=== PATIENT | female | born 1940 | race Caucasian/White ===

== ENCOUNTER 2018-12-28 15:19 | Inpatient (IN) | payer OTHER ==
[2018-12-28] VITALS (9 sets, daily range): BP systolic 110–159
[~2018-12-28] VITALS: Ht 157.5 cm; Wt 56.7 kg
[~2018-12-28 15:19] MED LIST: ASCO500T20 PO; ASPI-858 PO; CARV12.548 PO; CEFAZOLIN 1 GM IVPB PREMIX 50 ML IV ONE; CINN1CAP2 PO; ERGO400T7 PO; GARL200T PO; GING550C5 PO; GLIP10TA11 PO; LORA1TAB PO; MIDAZOLAM HCL 5 MG/5 ML VIAL IVP ONE; NITSL SL; NS 50 ML BAG IV ONE; NS 500 ML IV.SOLN IV ONE; NS IRRIG SOLN 1000 ML IR ONE; OMEG300C3 PO; PHEL5 PO; PROM5SYR PO; PROPOFOL 200MG/ 20ML VIAL (DIPRIVAN) IV ONE; SIMV5TAB59 PO
--- NOTE | 2018-12-28 15:26 | NUR ---
Placed in room 7. Placed on vehicle monitor technician, blood pressure machine and pulse oximeter. To gown for exam. Side rails up. Report given to Nikhil MARTIN.
--- NOTE | 2018-12-28 15:30 | NUR ---
ER at bedside examining patient.
--- NOTE | 2018-12-28 15:35 | NUR ---
Patient to ER via triage for evaluation of SOB with exertion x 2 days prior to arrival. Patient is awake, alert and oriented in no acute distress, vital signs stable, respiratioins even and unlabored, skin warm and dry to touch. Patient placed on quality assurance monitor body and shows bradycardia with rate in the 30's, patient denies CP/pressure at this time. Dr Velazquez at bedside to evaluate patient. IV placed to left forearm, bloods drawn and sent to lab. Family remains at bedside.
[2018-12-28] MEDS ORDERED: EPINEPHrine JECT 1 MG/10 ML SYR IVP ONE (15:45)
--- NOTE | 2018-12-28 15:45 | NUR ---
Per Dr Velaqzuez, only give Epinephrine 0.1 mg, Epinephrine given slow IVP. HR increased to 70's
[2018-12-28 16:05] LABS: BASOPHILS % (AUTO) 0.4 % (0.0-2.0); EOSINOPHILS # (AUTO) 0.2 K/uL (0.0-0.4); EOSINOPHILS % (AUTO) 1.8 % (0.0-4.0); HEMATOCRIT 36.3 % (36-48); HEMOGLOBIN 12.2 g/dL (12.0-16.0); LYMPHOCYTES # (AUTO) 3.2 K/uL (1.0-5.5); LYMPHOCYTES % (AUTO) 29.4 % (20.5-51.5); MEAN CORPUSCULAR HEMOGLOBIN 30 pg (27-31); MEAN CORPUSCULAR HGB CONC 34 % (32-36); MEAN CORPUSCULAR VOLUME 88 fL (79.0-98.0); MONOCYTES # (AUTO) 0.8 K/uL (0.0-1.0); MONOCYTES % (AUTO) 6.9 % (1.7-9.3); NEUTROPHILS # (AUTO) 6.7 K/uL (1.8-7.7); NEUTROPHILS % (AUTO) 61.5 % (40.0-70.0); PLATELET COUNT (AUTO) 227 K/uL (130-430); RED BLOOD CELL COUNT(AUTO) 4.12 MIL/uL (4.2-6.2); RED CELL DISTRIBUTION WIDTH 14.7 % (9.0-15.0); WHITE BLOOD COUNT (AUTO) 10.9 K/uL (4.8-10.8)
[2018-12-28 16:07] LABS: ANION GAP 11 (5-15); CALCIUM 9.3 mg/dL (8.4-11.0); CHLORIDE 100 mmol/L (98-107); CREATININE 1.13 mg/dL (0.55-1.30); GLUCOSE 256 mg/dL (70-99); POTASSIUM 4.1 mmol/L (3.5-5.1); SODIUM SERUM 135 mmol/L (136-145); UREA NITROGEN, BLOOD 26 mg/dL (8-21)
[2018-12-28 16:12] LABS: PROTHROMBIN TIME 10.3 SECS (9.5-12.5)
[2018-12-28] MEDS ORDERED: NOREPINEPHRINE 4 MG/4 ML VIAL IV ONE (16:12)
[2018-12-28] MEDS ORDERED: GLU500 PO (16:15)
[2018-12-28] MEDS ORDERED: GLIP10TA11 PO (16:15)
[2018-12-28] MEDS ORDERED: ASPI-1155 PO (16:15)
[2018-12-28] MEDS ORDERED: SIMV10TA2 PO (16:15)
[2018-12-28] MEDS ORDERED: CARV12.548 PO (16:15)
[2018-12-28] MEDS ORDERED: NITSL SL (16:15)
--- NOTE | 2018-12-28 16:15 | NUR ---
Patient resting quietly in no acute distress, vital signs stable, awaiting lab results and dispo. Medication reconciliation completed with information provided by patient. Any prior medication reconciliation on file was reviewed and corrected.
[2018-12-28 16:16] LABS: ALANINE AMINOTRANSFERASE 25 U/L (12-78); ALBUMIN 3.6 g/dL (3.4-4.8); ASPARTATE AMINOTRANSFERASE 21 U/L (10-37); TOTAL BILIRUBIN 0.3 mg/dL (0.0-1.0)
--- NOTE | 2018-12-28 16:40 | NUR ---
Patient resting quietly in no acute distress, awaiting dispo.
[2018-12-28] MEDS ORDERED: CALCIUM CHLORIDE 1 GM/10 ML DISP.SYRIN (14 mEq Ca++/SYR) IVP ONE (17:30)
[2018-12-28] MEDS ORDERED: GLUCAGON,HUMAN RECOMBINANT 1 MG VIAL IVP ONE (17:30)
[2018-12-28] MEDS ORDERED: NACL 0.9% 1,000 ML IV ONE (17:30)
[2018-12-28] MEDS ORDERED: ONDANSETRON HCL 4 MG/2 ML VIAL IVP ONE (17:30)
--- NOTE | 2018-12-28 17:35 | NUR ---
Pharmacy called for Glucagon, will have to locate and then bring to ER.
[2018-12-28] MEDS ORDERED: GLUCAGON,HUMAN RECOMBINANT 1 MG VIAL ONE ×2 (17:41→17:58)
--- NOTE | 2018-12-28 17:45 | NUR ---
Dr Carolina at bedside to evaluate patient, patient resting quietly in no acute distress.
--- NOTE | 2018-12-28 18:15 | NUR ---
Patient resting quietly in no acute distress, family remains at bedside.
--- NOTE | 2018-12-28 18:30 | NUR ---
Patient will be admitted to care of Dr Jang. Admitted to ICU unit. Will go to room 5. Belongings list completed. Summary report printed. Report will be given at bedside.
--- NOTE | 2018-12-28 18:32 | NUR ---
Transfer to ICU-5 via ACLS protocol. Licensed nurse present. IV present no signs or symptoms of infiltration.
--- NOTE | 2018-12-28 18:45 | NUR ---
RN OPENING NOTE RECEIVED PT VIA DAVID FROM ENDORSING ER NURSE. PT AAO, SPEAKS GEORGIAN AND IS COOPERATIVE WITH NO COMPLAINT OF DISCOMFORT, ASYMPTOMATIC BRADYCARDIA.
[2018-12-28] MEDS ORDERED: ALBUTEROL SULFATE 0.083% 2.5 MG/3 ML VIAL.NEB INH PRN (19:00)
--- NOTE | 2018-12-28 19:10 | NUR ---
ENDORSEMENT SBAR REPORT ENDORSED TO RECEIVING RN JET AT BEDSIDE SEE VS FLOW SHEET
[2018-12-28] MEDS ORDERED: DEXTROSE 50% JECT 50 ML DISP.SYRIN IVP PRN (19:15)
--- NOTE | 2018-12-28 19:15 | NUR ---
PM ASSESSMENT Pt in bed w/ eyes open, resting comfortably. Pt A&O x4 and able to verbalize needs. No signs of acute distress or discomfort noted. Pt on RA tolerating well w/ O2 sats @ 94% and even and unlabored breathing. Asymptomatic bradycardia w/ a heartblock seen on the monitor. Pt has a L hand 18g saline locked at this time. Pt doesn't verbalize any other needs at this time. Bed is locked and in lowest position, call light w/in reach, will continue to monitor.
--- NOTE | 2018-12-28 23:15 | NUR ---
Pt in bed w/ eyes closed resting comfortably. No signs of acute distress or discomfort noted. Complete heart block seen on the monitor. Pt is asymptomatic and doesn't verbalize any needs at this time. Will continue to monitor pt.
[2018-12-28] MEDS: INSULIN REGULAR, HUMAN 100 UNITS/ML, 10 ML VIAL (novoLIN R) SUBCUT PRN (23:58)
[2018-12-29] VITALS (24 sets, daily range): BP systolic 94–163
--- NOTE | 2018-12-29 02:00 | NUR ---
Pt in bed w/ eyes closed resting comfortably. No signs of acute distress or discomfort noted. Pt doesn't verbalize any other needs at this time. Bed is locked and in lowest position, call light w/in reach, will continue to monitor.
--- NOTE | 2018-12-29 05:15 | NUR ---
Pt in bed w/ eyes closed resting comfortably. No signs of acute distress or discomfort noted. Pt on RA tolerating well w/ O2 sats @ 96% and even and unlabored breathing. Pt doesn't verbalize any needs at this time. Bed is locked and in lowest position, call light w/in reach, will continue to monitor.
[2018-12-29 06:17] LABS: BASOPHILS % (AUTO) 0.4 % (0.0-2.0); EOSINOPHILS # (AUTO) 0.2 K/uL (0.0-0.4); EOSINOPHILS % (AUTO) 2.1 % (0.0-4.0); HEMATOCRIT 33.1 % (36-48); HEMOGLOBIN 11.1 g/dL (12.0-16.0); LYMPHOCYTES # (AUTO) 3.1 K/uL (1.0-5.5); LYMPHOCYTES % (AUTO) 29.6 % (20.5-51.5); MEAN CORPUSCULAR HEMOGLOBIN 29 pg (27-31); MEAN CORPUSCULAR HGB CONC 34 % (32-36); MEAN CORPUSCULAR VOLUME 88 fL (79.0-98.0); MONOCYTES # (AUTO) 0.8 K/uL (0.0-1.0); MONOCYTES % (AUTO) 7.8 % (1.7-9.3); NEUTROPHILS # (AUTO) 6.3 K/uL (1.8-7.7); NEUTROPHILS % (AUTO) 60.1 % (40.0-70.0); PLATELET COUNT (AUTO) 197 K/uL (130-430); RED BLOOD CELL COUNT(AUTO) 3.79 MIL/uL (4.2-6.2); RED CELL DISTRIBUTION WIDTH 14.4 % (9.0-15.0); WHITE BLOOD COUNT (AUTO) 10.4 K/uL (4.8-10.8)
[2018-12-29 06:50] LABS: ANION GAP 11 (5-15); CALCIUM 9.1 mg/dL (8.4-11.0); CHLORIDE 108 mmol/L (98-107); CREATININE 0.89 mg/dL (0.55-1.30); GLUCOSE 115 mg/dL (70-99); POTASSIUM 3.8 mmol/L (3.5-5.1); SODIUM SERUM 141 mmol/L (136-145); UREA NITROGEN, BLOOD 21 mg/dL (8-21)
[2018-12-29 06:59] LABS: ALANINE AMINOTRANSFERASE 29 U/L (12-78); ALBUMIN 3.1 g/dL (3.4-4.8); ASPARTATE AMINOTRANSFERASE 21 U/L (10-37); TOTAL BILIRUBIN 0.3 mg/dL (0.0-1.0)
[2018-12-29] MEDS ORDERED: NITROGLYCERIN 0.4 MG TAB.SUBL SL PRN (07:15)
--- NOTE | 2018-12-29 07:15 | NUR ---
Opening Note Received plan of care via sbar from endorsing nurse MRAIO Metz. Completed pt round. PT is presenting no signs of distress or communicating any discomforts.
--- NOTE | 2018-12-29 07:20 | NUR ---
ENDORSEMENT Report given to Dani MARTIN using SBAR format and pt care was endorsed. No signs of acute distress or discomfort noted. Pt doesn't verbalize any needs at this time.
--- NOTE | 2018-12-29 07:45 | NUR ---
Critical Value Troponin 0.[address] Rose. No new orders.
[2018-12-29] MEDS ORDERED: ASPIRIN 81 MG TAB.CHEW PO SCH (09:00)
[2018-12-29] MEDS: ASPIRIN 81 MG TAB.CHEW PO SCH (09:23)
[2018-12-29] MEDS: SIMVASTATIN 10 MG TABLET PO SCH (09:23)
--- NOTE | 2018-12-29 10:26 | NUR ---
Nutrition Update Av Scale 17 noted. Pt admitted for heart block. Diet: [facility] BMI: 22.9 kg/m2 RD to follow per nutrition care standards.
[2018-12-29] MEDS: INSULIN REGULAR, HUMAN 100 UNITS/ML, 10 ML VIAL (novoLIN R) SUBCUT PRN ×2 (12:09→19:00)
--- NOTE | 2018-12-29 13:44 | NUR ---
Received list of "do not eat" from pt's daughter. List includes: No yeast Gluten Dairy Coconut Eggs Tortillas
--- NOTE | 2018-12-29 13:52 | NUR ---
Called dietary spoke to Puja to provide list of food preferences per pt and pt's daughter.
--- NOTE | 2018-12-29 14:04 | NUR ---
Nutrition Note RD implemented dietary restrictions to [employer] under dislikes tab. Per RN, pt's daughter stated that pt sees a land acquisition specialist and has recommended pt to avoid these food products: yeast, gluten, dairy, coconut, eggs, and tortillas. RD to continue to follow as per nutrition care standards.
--- NOTE | 2018-12-29 20:00 | NUR ---
Closing Note Gave plan of care to endorsing nurse via Berny orozco RN. Completed PT round.
--- NOTE | 2018-12-29 20:01 | NUR ---
AAO X4. IN NO APPARENT DISTRESS. DENIES PAIN. RHYTHM 3RD DEGREE HB. ON ROOM AIR. HOB UP TO COMFORT. SIDE RAILS UP X3. CALL LIGHTS WITHIN REACH. VISITORS AT BEDSIDE.
--- NOTE | 2018-12-29 22:00 | NUR ---
VISITORS LEFT EARLIER. VOIDED CLOUDY STRAW YELLOW URINE VIA BEDPAN EARLIER. MODEST. SELF HUSAM-CARE.
[2018-12-30] VITALS (21 sets, daily range): BP systolic 129–184
--- NOTE | 2018-12-30 | NUR ---
DOZES ON AND OFF. HR HIGH 30'S WHEN ASLEEP. O DISTRESS. ACCU-CHEK 123, NO INSULIN COV. HR GOES UP TO 70'S WHEN AWAKE.
--- NOTE | 2018-12-30 02:00 | NUR ---
VOIDED 250CC CLOUDY YELLOW URINE VIA BEDPAN.
--- NOTE | 2018-12-30 04:00 | NUR ---
SLEPT INTERMITTENTLY. VOIDED 110 CC CLOUDY YELLOW URINE VIA BEDPAN.
--- NOTE | 2018-12-30 06:00 | NUR ---
SLEPT FOR LONG PERIODS OF TIME. DENIES PAIN, SOB, DISTRESS. ACCU-CHEK 171, 2 UNITS REGULAR INSULIN SQ GIVEN. REMAINS IN GUAREDED CONDITION.
[2018-12-30 06:08] LABS: BASOPHILS % (AUTO) 0.4 % (0.0-2.0); EOSINOPHILS # (AUTO) 0.3 K/uL (0.0-0.4); EOSINOPHILS % (AUTO) 3.1 % (0.0-4.0); HEMATOCRIT 33.5 % (36-48); HEMOGLOBIN 11.2 g/dL (12.0-16.0); LYMPHOCYTES # (AUTO) 2.9 K/uL (1.0-5.5); LYMPHOCYTES % (AUTO) 35.1 % (20.5-51.5); MEAN CORPUSCULAR HEMOGLOBIN 30 pg (27-31); MEAN CORPUSCULAR HGB CONC 34 % (32-36); MEAN CORPUSCULAR VOLUME 88 fL (79.0-98.0); MONOCYTES # (AUTO) 0.7 K/uL (0.0-1.0); MONOCYTES % (AUTO) 7.8 % (1.7-9.3); NEUTROPHILS # (AUTO) 4.5 K/uL (1.8-7.7); NEUTROPHILS % (AUTO) 53.6 % (40.0-70.0); PLATELET COUNT (AUTO) 190 K/uL (130-430); RED BLOOD CELL COUNT(AUTO) 3.81 MIL/uL (4.2-6.2); RED CELL DISTRIBUTION WIDTH 14.7 % (9.0-15.0); WHITE BLOOD COUNT (AUTO) 8.4 K/uL (4.8-10.8)
[2018-12-30 06:25] LABS: ANION GAP 10 (5-15); CALCIUM 8.9 mg/dL (8.4-11.0); CHLORIDE 107 mmol/L (98-107); CREATININE 1.02 mg/dL (0.55-1.30); GLUCOSE 155 mg/dL (70-99); POTASSIUM 3.9 mmol/L (3.5-5.1); SODIUM SERUM 140 mmol/L (136-145); UREA NITROGEN, BLOOD 18 mg/dL (8-21)
[2018-12-30 06:39] LABS: ALANINE AMINOTRANSFERASE 23 U/L (12-78); ASPARTATE AMINOTRANSFERASE 17 U/L (10-37); TOTAL BILIRUBIN 0.3 mg/dL (0.0-1.0)
--- NOTE | 2018-12-30 07:20 | NUR ---
TROPONIN 0.154 REPORTED BY LAB, RELAYED TO MERT MARTIN AM NURSE.
--- NOTE | 2018-12-30 07:25 | NUR ---
Opening Note Patient received awake and with family @ bedside. Patient on registered nurse cardiac telemetry with 3rd degree heart block with HR between the 30s and 40s. Patient breathing evenly and unlabored on room air. No signs of acute distress noted. Patient has a left hand IV 18 gauge infusing NS @ 100 ml/hr. Patient voids freely using bedpan. Skin intact. Safety precautions enforced. Use of call light reinforced.
[2018-12-30] MEDS ORDERED: DOPamine PREMIX 250 ML IV PRN (08:30)
--- NOTE | 2018-12-30 08:30 | NUR ---
CHG CHG bath given and linens changed. Patient tolerated procedure well.
--- NOTE | 2018-12-30 08:40 | NUR ---
MD Rounds Dr. Thacker @ bedside. New orders received and will be carried out.
--- NOTE | 2018-12-30 08:50 | NUR ---
Rounds Dr. Garcia @ bedside.
--- NOTE | 2018-12-30 09:00 | NUR ---
RN Update Dr. Will and CARPET YARN WINDER OPERATOR @ bedside.
--- NOTE | 2018-12-30 09:36 | NUR ---
Transport to OR Patient brought to OR for pacemaker insertion @ this time. Patient connected to portable monitor with stable VS. No acute distress noted. Patient transported via gurney. Report given to OR nurse using SBAR format.
[2018-12-30] MEDS ORDERED: POLYMYXIN 500,000/BACIT.10,000 UNITS in NS IRR 1 L IR ONE (09:41)
[2018-12-30] MEDS ORDERED: ONDANSETRON HCL 4 MG/2 ML VIAL IVP PRN (10:45)
[2018-12-30] MEDS ORDERED: fentaNYL CITRATE/PF 100 MCG/2 ML AMP IVP PRN ×2 (10:45)
[2018-12-30] MEDS: SIMVASTATIN 10 MG TABLET PO SCH (14:01)
[2018-12-30] MEDS: ASPIRIN 81 MG TAB.CHEW PO SCH (14:01)
[2018-12-30] MEDS: INSULIN REGULAR, HUMAN 100 UNITS/ML, 10 ML VIAL (novoLIN R) SUBCUT PRN (14:01)
[2018-12-30] MEDS: CEPHALEXIN 250 MG/5 ML, 100 ML BTL PO SCH ×2 (14:03→18:03)
--- NOTE | 2018-12-30 15:20 | NUR ---
Back from OR Patient back to ICU-5 and connected to clinical research monitor. Patient on 2L oxygen via NC breathing even and unlabored. No signs of acute distress @ this time. Patient did not complain of pain upon assessment.
[2018-12-30] MEDS: ACETAMINOPHEN 325 MG TABLET PO PRN ×2 (17:16→21:34)
--- NOTE | 2018-12-30 19:00 | NUR ---
Closing Note Patient endorsed to spare parts clerk RN using SBAR format. No signs of acute distress @ this time. Safety precautions enforced.
--- NOTE | 2018-12-30 20:00 | NUR ---
AWAKE, ALERT, ORIENTED X4. IN NO APPARENT DISTRESS. RHYTHM PACED BEATS. ATE LATE DINNER EARLIER. VOIDED 250 CC CLEAR VIRY URINE WITH SEDIMENTS VIA BEDPAN EARLIER. USED INCENTIVE SPIROMETER SUPERVISED BY RT. FAMILY CAME IN TO VISIT.
--- NOTE | 2018-12-30 21:00 | NUR ---
VOIDED AGAIN 200CC CLEAR VIRY URINE VIA BEDPAN. MODEST. SELF HUSAM-CARE. RIGO WELL. LEFT ARM IN SLING.
--- NOTE | 2018-12-30 21:30 | NUR ---
C/O LEFT CHEST INCISIONAL PAIN, 7/10 IN PAIN SCALE, TYLENOL GR 10 PO GIVEN WITH SOME RELIEF.
--- NOTE | 2018-12-30 22:00 | NUR ---
DAUGHTERS LEFT FOR HOME. VOIDED AGAIN 250CC CLEAR VIRY URINE VIA BEDPAN.
[2018-12-31] VITALS (15 sets, daily range): BP systolic 131–155
--- NOTE | 2018-12-31 | NUR ---
DOZES ON AND OFF. PLEASANT. ACCU-CHEK 207, 4 UNITS REGULAR INSULIN SQ GIVEN PER SLIDING SCALE COV. VOIDED 150CC CLEAR VIRY URINE VIA BEDPAN. SELF HUSAM-CARE.
[2018-12-31] MEDS: CEPHALEXIN 250 MG/5 ML, 100 ML BTL PO SCH ×3 (00:29→12:25)
[2018-12-31] MEDS: INSULIN REGULAR, HUMAN 100 UNITS/ML, 10 ML VIAL (novoLIN R) SUBCUT PRN ×3 (00:37→12:31)
--- NOTE | 2018-12-31 02:00 | NUR ---
VOIDED 250CC CLEAR VIRY URINE VIA BEDPAN. SLEPT INTERMITTENTLY. TURNS SELF WELL.
[2018-12-31] MEDS: ACETAMINOPHEN 325 MG TABLET PO PRN ×2 (02:53→07:46)
--- NOTE | 2018-12-31 03:00 | NUR ---
TYLENOL GR 10 PO GIVEN FOR COMPLAIN OF LEFT CHEST INCISIONAL PAIN.VOIDED AGAIN 175 CC CLEAR VIRY URINE VIA BEDPAN. SELF HUSAM-CARE.
--- NOTE | 2018-12-31 05:00 | NUR ---
VOIDED 260CC CLEAR VIRY URINE VIA BEDPAN.
--- NOTE | 2018-12-31 06:00 | NUR ---
TAKES CAT NAPS. DENIES PAIN, DISTRESS, SOB. ACCU-CHEK 234, 4 UNITS REGULAR INSULIN SQ GIVEN. VOIDED 250CC CLEAR VIRY URINE VIA BEDPAN. SELF HUSAM-CARE. NO COMPLAINS OFFERED AT THIS TIME. REMAINS IN GUARDED CONDITION.
[2018-12-31 06:53] LABS: BASOPHILS % (AUTO) 0.5 % (0.0-2.0); EOSINOPHILS # (AUTO) 0.3 K/uL (0.0-0.4); EOSINOPHILS % (AUTO) 3.7 % (0.0-4.0); HEMATOCRIT 33.7 % (36-48); HEMOGLOBIN 11.4 g/dL (12.0-16.0); LYMPHOCYTES # (AUTO) 1.8 K/uL (1.0-5.5); LYMPHOCYTES % (AUTO) 22.2 % (20.5-51.5); MEAN CORPUSCULAR HEMOGLOBIN 29 pg (27-31); MEAN CORPUSCULAR HGB CONC 34 % (32-36); MEAN CORPUSCULAR VOLUME 87 fL (79.0-98.0); MONOCYTES # (AUTO) 0.7 K/uL (0.0-1.0); MONOCYTES % (AUTO) 8.3 % (1.7-9.3); NEUTROPHILS # (AUTO) 5.2 K/uL (1.8-7.7); NEUTROPHILS % (AUTO) 65.3 % (40.0-70.0); PLATELET COUNT (AUTO) 199 K/uL (130-430); RED BLOOD CELL COUNT(AUTO) 3.88 MIL/uL (4.2-6.2); RED CELL DISTRIBUTION WIDTH 14.6 % (9.0-15.0)
--- NOTE | 2018-12-31 07:15 | NUR ---
Received pt alert and oriented and c/o pain to surgical site left chest. Left chest with swelling and dry dressing in place. Lungs clear. Sats 97% without 02. VSS. 100% paced. 18g IV to left wrist in place with NS at 50 cc/ hr infusing. Leg squeezers in place. Assisted to sit up in bed for breakfast. Will continue to monitor.
[2018-12-31 07:39] LABS: ALANINE AMINOTRANSFERASE 22 U/L (12-78); ALBUMIN 2.7 g/dL (3.4-4.8); ANION GAP 11 (5-15); ASPARTATE AMINOTRANSFERASE 14 U/L (10-37); CALCIUM 8.1 mg/dL (8.4-11.0); CHLORIDE 104 mmol/L (98-107); CREATININE 0.86 mg/dL (0.55-1.30); GLUCOSE 203 mg/dL (70-99); PHOSPHORUS 2.8 mg/dL (2.7-4.5); SODIUM SERUM 135 mmol/L (136-145); TOTAL BILIRUBIN 0.4 mg/dL (0.0-1.0); UREA NITROGEN, BLOOD 16 mg/dL (8-21)
[2018-12-31 07:50] LABS: POTASSIUM 2.9 mmol/L (3.5-5.1)
[2018-12-31] MEDS ORDERED: POTASSIUM CHLORIDE 20 MEQ TAB.PRT.SR PO ONE ×2 (08:30→13:00)
[2018-12-31] MEDS ORDERED: MAGNESIUM SULFATE 1 GM/2 ML VIAL IVP ONE (08:30)
[2018-12-31] MEDS ORDERED: MAGNESIUM SULFATE 50 ML IV ONE (09:00)
[2018-12-31] MEDS: ASPIRIN 81 MG TAB.CHEW PO SCH (09:20)
--- NOTE | 2018-12-31 09:20 | NUR ---
Pt ate most of breakfast without problems. Medicated earlier with tylenol at patients request. Declines anything stronger.
[2018-12-31] MEDS: SIMVASTATIN 10 MG TABLET PO SCH (09:21)
--- NOTE | 2018-12-31 09:38 | NUR ---
Dr. Garcia in to see pt. I made him aware of Dr. Mishra potassium coverage earlier this morning. He said to hold his coverage that he just left. Orders left. Dr. Thacker also at bedside and both doctors spoke about discharge plans. Pt remains 100% paced.
[2018-12-31] MEDS ORDERED: POTASSIUM CHLORIDE 20 MEQ/PKT PACKET PO ONE (09:45)
[2018-12-31] MEDS ORDERED: CARVEDILOL 6.25 MG TABLET (COREG) PO ONE (10:00)
[2018-12-31] MEDS ORDERED: CEPH-568 PO ×3 (10:17→10:44)
--- NOTE | 2018-12-31 10:30 | NUR ---
Assisted to BSC to void. No dizzyness. "I felt ok". Assisted back to bed. Will continue to monitor.
[2018-12-31] MEDS ORDERED: CARV6.2554 PO (10:47)
[2018-12-31] MEDS ORDERED: ACET325T53 PO (10:48)
--- NOTE | 2018-12-31 12:30 | NUR ---
Assisted OOB to use BSC to void. No dizzyness. 100% paced. Will continue to monitor.
--- NOTE | 2018-12-31 14:58 | NUR ---
Saline lock removed. Pt discharged home via private car with daughter. Discharge instrcutions reviewed with her and her daughter. Reviewed medicatonion to be taken at home with verbal read back from both pt and her daughter. All questions answered. Pt is aware to F>U with Dr. Thacker in 10 days and to finish her antibiotc. Wrist band removed and pt wheeled to car with all belongings including $50, wallet and purse and clothes.
[2018-12-31] MEDS ORDERED: CARVEDILOL 6.25 MG TABLET (COREG) PO SCH (21:00)
--- NOTE | 2019-01-05 11:29 | NUR ---
Discharge Follow Up Phone Call: [employer] left message for pt on 01/04/19; pt returned call on 01/05/19. UNDERTAKER HELPER spoke with pt, pt states that she is doing well. Pt reports that she has filled her prescriptions. Pt states that she has an appointment with Dr. Thacker on 01/15/19 at 2:45pm and an appointment with her regular chronic disease manager, Dr. Olivia on 01/26/19. Pt has no concerns/needs related to her discharge instructions or hospitalization. No need for further follow up calls at this time.
[2019-01-30] MEDS ORDERED: NACL 0.9% 1,000 ML IV SCH (07:00)
== END 2018-12-31 14:58 | disposition home or self-care (01) | DRG 242 ==
LOC: SED 15:19 → SIC 18:17
PROVIDERS: ADMIT Internal Medicine; ATTEND Internal Medicine
PROC: 02HK3JZ Insertion of Pacemaker Lead into Right Ventricle, Percutaneous Approach (ICD-10-PCS; 2018-12-30)
PROC: 02H63JZ Insertion of Pacemaker Lead into Right Atrium, Percutaneous Approach (ICD-10-PCS; 2018-12-30)
PROC: 5A1223Z Performance of Cardiac Pacing, Continuous (ICD-10-PCS; 2018-12-30)
PROC: 0JH606Z Insertion of Pacemaker, Dual Chamber into Chest Subcutaneous Tissue and Fascia, Open Approach (ICD-10-PCS; principal; 2018-12-30 09:30)
DX: I44.2 Atrioventricular block, complete (principal); I21.A1 Myocardial infarction type 2; I50.31 Acute diastolic (congestive) heart failure; E11.22 Type 2 diabetes mellitus with diabetic chronic kidney disease; I12.9 Hypertensive chronic kidney disease with stage 1 through stage 4 chronic kidney disease, or unspecified chronic kidney disease; N18.9 Chronic kidney disease, unspecified; I25.10 Atherosclerotic heart disease of native coronary artery without angina pectoris; E78.5 Hyperlipidemia, unspecified; Z79.82 Long term (current) use of aspirin; Z79.84 Long term (current) use of oral hypoglycemic drugs; Z79.899 Other long term (current) drug therapy; Z83.3 Family history of diabetes mellitus; Z85.3 Personal history of malignant neoplasm of breast; Z86.19 Personal history of other infectious and parasitic diseases; Z90.11 Acquired absence of right breast and nipple; Z90.710 Acquired absence of both cervix and uterus; Z95.0 Presence of cardiac pacemaker; Z98.61 Coronary angioplasty status; Z88.2 Allergy status to sulfonamides
CPT/HCPCS: 36415; 71045; 76001; 80053; 82962; 83036; 83735-TC; 83880; 84100-TC; 84443-TC; 84484; 85025; 85610-TC; 85730-TC; 87081; 93005; 93306; 94010; 96361; 96374; 96375; 99291; A4565; C1785; C1898; J0171; J0690; J1265; J1610; J1815; J2250; J2405; J2704; J3475; J7030; J7040

== ENCOUNTER 2019-01-26 17:44 | Emergency (ER) | payer OTHER ==
[~2019-01-26] VITALS: Ht 162.6 cm; Wt 56.2 kg
[~2019-01-26 17:44] MED LIST changes: +ACET325T53 PO; -ASCO500T20 PO; +ASPI-1155 PO; -ASPI-858 PO; -CARV12.548 PO; +CARV6.2554 PO; -CEFAZOLIN 1 GM IVPB PREMIX 50 ML IV ONE; +CEPH-568 PO; -CINN1CAP2 PO; -ERGO400T7 PO; -GARL200T PO; -GING550C5 PO; +GLU500 PO; -LORA1TAB PO; -MIDAZOLAM HCL 5 MG/5 ML VIAL IVP ONE; -NS 50 ML BAG IV ONE; -NS 500 ML IV.SOLN IV ONE; -NS IRRIG SOLN 1000 ML IR ONE; -OMEG300C3 PO; -PHEL5 PO; -PROM5SYR PO; -PROPOFOL 200MG/ 20ML VIAL (DIPRIVAN) IV ONE; +SIMV10TA2 PO; -SIMV5TAB59 PO
[2019-01-26 17:55] VITALS: BP_SYST 117
[2019-01-26] MEDS ORDERED: NACL 0.9% 1,000 ML IV ONE (17:58)
[2019-01-26 18:26] LABS: BASOPHILS # (AUTO) 0.1 K/uL (0.0-0.2); BASOPHILS % (AUTO) 0.6 % (0.0-2.0); EOSINOPHILS # (AUTO) 0.2 K/uL (0.0-0.4); EOSINOPHILS % (AUTO) 1.3 % (0.0-4.0); HEMATOCRIT 35.7 % (36-48); HEMOGLOBIN 11.8 g/dL (12.0-16.0); LYMPHOCYTES # (AUTO) 2.3 K/uL (1.0-5.5); LYMPHOCYTES % (AUTO) 20.2 % (20.5-51.5); MEAN CORPUSCULAR HEMOGLOBIN 29 pg (27-31); MEAN CORPUSCULAR HGB CONC 33 % (32-36); MEAN CORPUSCULAR VOLUME 88 fL (79.0-98.0); MONOCYTES # (AUTO) 0.9 K/uL (0.0-1.0); MONOCYTES % (AUTO) 7.9 % (1.7-9.3); NEUTROPHILS # (AUTO) 8.1 K/uL (1.8-7.7); PLATELET COUNT (AUTO) 252 K/uL (130-430); RED BLOOD CELL COUNT(AUTO) 4.06 MIL/uL (4.2-6.2); RED CELL DISTRIBUTION WIDTH 14.4 % (9.0-15.0); WHITE BLOOD COUNT (AUTO) 11.6 K/uL (4.8-10.8)
[2019-01-26 18:34] LABS: PROTHROMBIN TIME 10.1 SECS (9.5-12.5)
[2019-01-26 18:35] LABS: ANION GAP 17 (5-15); CHLORIDE 97 mmol/L (98-107); CREATININE 1.79 mg/dL (0.55-1.30); POTASSIUM 4.8 mmol/L (3.5-5.1); SODIUM SERUM 132 mmol/L (136-145); UREA NITROGEN, BLOOD 41 mg/dL (8-21)
[2019-01-26 18:40] LABS: ALANINE AMINOTRANSFERASE 22 U/L (12-78); ALBUMIN 3.5 g/dL (3.4-4.8); ASPARTATE AMINOTRANSFERASE 20 U/L (10-37); TOTAL BILIRUBIN 0.2 mg/dL (0.0-1.0)
[2019-01-26 18:42] LABS: GLUCOSE 499 mg/dL (70-99)
[2019-01-26] MEDS ORDERED: INSULIN REGULAR, HUMAN 10 UNITS/0.1 ML INJ IVP ONE (18:45)
[2019-01-26] MEDS ORDERED: NACL 0.9% 2,000 ML IV ONE (18:45)
[2019-01-26 23:22] VITALS: BP_SYST 135
== END 2019-01-26 23:07 | disposition short-term general hospital (02) ==
LOC: SED 17:44
DX: T82.111A Breakdown (mechanical) of cardiac pulse generator (battery), initial encounter (principal); N28.9 Disorder of kidney and ureter, unspecified; E11.9 Type 2 diabetes mellitus without complications; I10 Essential (primary) hypertension; E78.00 Pure hypercholesterolemia, unspecified; Z85.3 Personal history of malignant neoplasm of breast; Z88.2 Allergy status to sulfonamides; Z79.82 Long term (current) use of aspirin; Z79.899 Other long term (current) drug therapy; Y92.89 Other specified places as the place of occurrence of the external cause
CPT/HCPCS: 36415; 71045; 80053; 82009; 82962; 84484; 85025; 85610; 85730; 93005; 96374; 99285; J1815; J7030

== ENCOUNTER 2019-02-08 22:20 | Emergency (ER) | payer OTHER ==
[~2019-02-08] VITALS: Ht 157.5 cm; Wt 56.2 kg
[~2019-02-08 22:20] MED LIST changes: -CARV6.2554 PO; -CEPH-568 PO
[2019-02-08 23:01] VITALS: BP_SYST 108
[2019-02-09 03:42] VITALS: BP_SYST 114
[2019-02-10] MEDS ORDERED: CARV12.548 PO (21:16)
== END 2019-02-09 03:42 | disposition home or self-care (01) ==
LOC: SED 22:20
DX: L03.116 Cellulitis of left lower limb (principal); E78.00 Pure hypercholesterolemia, unspecified; E11.9 Type 2 diabetes mellitus without complications; I10 Essential (primary) hypertension; Z85.3 Personal history of malignant neoplasm of breast; Z88.2 Allergy status to sulfonamides; Z88.8 Allergy status to other drugs, medicaments and biological substances; Z91.012 Allergy to eggs; Z91.011 Allergy to milk products; Z79.82 Long term (current) use of aspirin; Z79.899 Other long term (current) drug therapy
CPT/HCPCS: 82962; 99283

== ENCOUNTER 2019-02-10 19:15 | Inpatient (IN) | payer OTHER ==
[~2019-02-10] VITALS: Ht 157.5 cm; Wt 54.0 kg
[2019-02-10 19:20] VITALS: BP_SYST 118
--- NOTE | 2019-02-10 19:25 | NUR ---
Patient to ER bed 05 for evaluation. Side rails up. Report given to Jad MARTIN.
--- NOTE | 2019-02-10 19:30 | NUR ---
Pt C/O LT heel pain. Was seen in the ED on 02/08 for the same chief complaint, discharged with dx of cellulitis and antibiotics. Pain is 10/10 and took Tylenol with no relief. Denies any other symptoms at this time. Will continue to monitor.
--- NOTE | 2019-02-10 20:10 | NUR ---
ER Dr. Ortega at bedside examining patient.
[2019-02-10 20:51] LABS: BASOPHILS % (AUTO) 0.4 % (0.0-2.0); EOSINOPHILS # (AUTO) 0.2 K/uL (0.0-0.4); EOSINOPHILS % (AUTO) 1.5 % (0.0-4.0); HEMATOCRIT 36.2 % (36-48); HEMOGLOBIN 12.2 g/dL (12.0-16.0); LYMPHOCYTES # (AUTO) 2.4 K/uL (1.0-5.5); LYMPHOCYTES % (AUTO) 20.6 % (20.5-51.5); MEAN CORPUSCULAR HEMOGLOBIN 30 pg (27-31); MEAN CORPUSCULAR HGB CONC 34 % (32-36); MEAN CORPUSCULAR VOLUME 88 fL (79.0-98.0); MONOCYTES # (AUTO) 0.8 K/uL (0.0-1.0); MONOCYTES % (AUTO) 7.3 % (1.7-9.3); NEUTROPHILS % (AUTO) 70.2 % (40.0-70.0); PLATELET COUNT (AUTO) 263 K/uL (130-430); RED BLOOD CELL COUNT(AUTO) 4.12 MIL/uL (4.2-6.2); RED CELL DISTRIBUTION WIDTH 14.2 % (9.0-15.0); WHITE BLOOD COUNT (AUTO) 11.5 K/uL (4.8-10.8)
[2019-02-10 20:56] LABS: ANION GAP 9 (5-15); CALCIUM 10.2 mg/dL (8.4-11.0); CHLORIDE 99 mmol/L (98-107); GLUCOSE 186 mg/dL (70-99); POTASSIUM 4.6 mmol/L (3.5-5.1); SODIUM SERUM 132 mmol/L (136-145); UREA NITROGEN, BLOOD 25 mg/dL (8-21)
[2019-02-10 21:01] LABS: ALANINE AMINOTRANSFERASE 18 U/L (12-78); ALBUMIN 3.6 g/dL (3.4-4.8); ASPARTATE AMINOTRANSFERASE 14 U/L (10-37); TOTAL BILIRUBIN 0.4 mg/dL (0.0-1.0)
[2019-02-10 21:14] LABS: BILIRUBIN,URINE NEGATIVE (NEGATIVE); BLOOD, URINE NEGATIVE (NEGATIVE); CLARITY/URINE CLEAR (CLEAR); COLOR,URINE YELLOW (YELLOW); GLUCOSE,URINE NEGATIVE (NEGATIVE); KETONES,URINE TRACE (NEGATIVE); LEUKOCYTE ESTERASE ,URINE NEGATIVE (NEGATIVE); NITRITE, URINE NEGATIVE (NEGATIVE); PROTEIN URINE NEGATIVE (NEGATIVE); UROBILINOGEN,URINE 0.2 (0.2-1.0)
[2019-02-10] MEDS ORDERED: CARV12.548 PO (21:16)
--- NOTE | 2019-02-10 21:16 | NUR ---
Pt reports she is full code
--- NOTE | 2019-02-10 21:16 | NUR ---
Medication reconciliation completed with information provided by pt. Any prior medication reconciliation on file was reviewed and corrected.
--- NOTE | 2019-02-10 21:30 | NUR ---
Patient transported to radiology via wheelchair, accompanied by rad for US.
--- NOTE | 2019-02-10 21:50 | NUR ---
Pt returned in stable condition. Will continue to monitor.
--- NOTE | 2019-02-10 22:14 | NUR ---
Pt is resting in bed, states Lt heel is a 5/10 while at rest. No acute distress noted at this time, will continue to monitor
[2019-02-10] MEDS ORDERED: PIPERACILLIN/TAZO 3.375 GM in NS 50 ML IV ONE (22:45)
[2019-02-10] MEDS ORDERED: VANCOMYCIN HCL 1,000 MG in NS 250 ML IV ONE (22:45)
--- NOTE | 2019-02-10 22:50 | NUR ---
# 20 gauge angiocath placed to LT AC. Use of asceptic technique. Opsite placed over site. Blood return noted. Blood for lab drawn from site. Flushed with 10 cc of normal saline. No evidence of infiltration noted. Patient tolerated well.
[2019-02-10] MEDS ORDERED: VANCOMYCIN HCL 1000 MG/VIAL IV ONE ×2 (23:19→23:20)
[2019-02-10] MEDS ORDERED: PIPERACILLIN/TAZOBACTAM 3.375 GM/VIAL (ZOSYN) IV ONE (23:20)
--- NOTE | 2019-02-10 23:25 | NUR ---
Patient will be admitted to care of Dr. Jang. Admitted to med surg unit. Will go to room 134. Belongings list completed. Summary report printed. Report will be given at bedside.
[2019-02-11] VITALS (8 sets, daily range): BP systolic 114–134
[2019-02-11] MEDS ORDERED: HYDROcodone/ACETAMIN 5-325 MG TAB (NORCO/ VICODIN) PO PRN
[2019-02-11] MEDS ORDERED: NITROGLYCERIN 0.4 MG TAB.SUBL SL PRN
[2019-02-11] MEDS ORDERED: HYDROcodone/ACETAMIN 10-325 MG TAB PO PRN
[2019-02-11] MEDS ORDERED: ALBUTEROL SULFATE 0.083% 2.5 MG/3 ML VIAL.NEB INH PRN
[2019-02-11] MEDS ORDERED: ONDANSETRON HCL 4 MG/2 ML VIAL IVP PRN
--- NOTE | 2019-02-11 00:04 | NUR ---
Pt is resting in bed, report has been given to Admitting RN on med surg. Will continue to monitor.
--- NOTE | 2019-02-11 00:09 | NUR ---
Pt being transported to [facility] surge by licensed staff. Vitals are stable prior to transport.
--- NOTE | 2019-02-11 00:12 | NUR ---
ADMISSION NOTE Received patient from ER via [place]. Patient admitted with diagnosis of left foot cellulitis, to room 134 A. Patient is awake, alert, oriented Patient oriented to hospital room, call light, toileting, pain management and safety-teach back done. Patient informed that LIZZIE MARTIN will be her nurse, Avelina will be her VETERINARY NURSE .primary rn and an at bedside .
[2019-02-11] MEDS: AMPICILLIN SODIUM/SULBACTAM NA 3 GM in NS 100 ML IV SCH ×5 (00:15→23:44)
[2019-02-11] MEDS ORDERED: AMPICILLIN SODIUM/SULBACTAM NA 3 GM VIAL ONE (00:46)
--- NOTE | 2019-02-11 01:08 | NUR ---
Unasyn: Called remote pharmacy (spoke with Norm) to clarify timing of 1st dose of Unasyn. Patient received Zosyn 3.375 GM in the ER at 23:23, which is in the same class as Unasyn 3 GM scheduled for 00:15. Per Norm, 1st dose of Unasyn should be given at 06:00 since both medications are in the same class.
[2019-02-11] MEDS: ACETAMINOPHEN 325 MG TABLET PO PRN (02:07)
--- NOTE | 2019-02-11 02:13 | NUR ---
Pain: Patient complained of pain to the left foot and requested Tylenol. Administered medication as ordered, education provided regarding indications and side effects. Call light with patient. Will continue monitoring.
--- NOTE | 2019-02-11 06:16 | NUR ---
Closing note: Patient is awake in bed, no distress. No complaints of pain at this time. IV antibiotics currently infusing to left AC as ordered. Blood sugar this AM is 130. All needs met. Safety and fall precautions observed. Will endorse to thomas MARTIN.
[2019-02-11 06:50] LABS: BASOPHILS % (AUTO) 0.5 % (0.0-2.0); EOSINOPHILS # (AUTO) 0.3 K/uL (0.0-0.4); EOSINOPHILS % (AUTO) 3.4 % (0.0-4.0); HEMATOCRIT 34.4 % (36-48); HEMOGLOBIN 11.6 g/dL (12.0-16.0); LYMPHOCYTES # (AUTO) 2.9 K/uL (1.0-5.5); LYMPHOCYTES % (AUTO) 35.6 % (20.5-51.5); MEAN CORPUSCULAR HEMOGLOBIN 30 pg (27-31); MEAN CORPUSCULAR HGB CONC 34 % (32-36); MEAN CORPUSCULAR VOLUME 87 fL (79.0-98.0); MONOCYTES # (AUTO) 0.7 K/uL (0.0-1.0); NEUTROPHILS # (AUTO) 4.1 K/uL (1.8-7.7); NEUTROPHILS % (AUTO) 51.5 % (40.0-70.0); PLATELET COUNT (AUTO) 266 K/uL (130-430); RED BLOOD CELL COUNT(AUTO) 3.95 MIL/uL (4.2-6.2); RED CELL DISTRIBUTION WIDTH 14.3 % (9.0-15.0)
[2019-02-11 07:18] LABS: ALANINE AMINOTRANSFERASE 17 U/L (12-78); ALBUMIN 3.2 g/dL (3.4-4.8); ANION GAP 11 (5-15); ASPARTATE AMINOTRANSFERASE 13 U/L (10-37); CALCIUM 9.9 mg/dL (8.4-11.0); CHLORIDE 100 mmol/L (98-107); CREATININE 0.85 mg/dL (0.55-1.30); GLUCOSE 130 mg/dL (70-99); POTASSIUM 3.5 mmol/L (3.5-5.1); SODIUM SERUM 134 mmol/L (136-145); TOTAL BILIRUBIN 0.5 mg/dL (0.0-1.0); UREA NITROGEN, BLOOD 17 mg/dL (8-21)
--- NOTE | 2019-02-11 07:24 | NUR ---
Opening Note received bedside SBAR report from auto parts delivery driver RN, patient resting in bed, patient reports pain is controlled, no acute distress noted, educated patient on use of call light and asked to call for assistance, patient verbalized understanding, call light in reach, educated patient on use of bed alarm for patient safety, patient refusing bed alarm, bed in low and locked position.
[2019-02-11] MEDS: SIMVASTATIN 10 MG TABLET PO SCH (08:30)
[2019-02-11] MEDS: CARVEDILOL 12.5 MG TABLET (COREG) PO SCH ×2 (08:30→21:00)
[2019-02-11] MEDS: ASPIRIN 81 MG TAB.CHEW PO SCH (08:30)
[2019-02-11] MEDS: ENOXAPARIN SODIUM 40 MG/0.4 ML SYRINGE SUBCUT SCH (08:31)
--- NOTE | 2019-02-11 09:22 | NUR ---
Ambulated to bathroom assisted patient to ambulate to bathroom, minimal assistance required, patient voided x1, assisted patient to ambulate back to bed, patient resting in bed, no acute distress noted.
[2019-02-11] MEDS: INSULIN REGULAR, HUMAN 100 UNITS/ML, 10 ML VIAL (humuLIN R) SUBCUT PRN ×2 (11:38→21:05)
--- NOTE | 2019-02-11 11:39 | NUR ---
RN Rounds patient resting in bed, patient denies any pain, no acute distress noted, patients daughter at bedside.
--- NOTE | 2019-02-11 13:40 | NUR ---
RN Rounds patient resting in bed, patient states that pain is controlled at this time, no acute distress noted.
--- NOTE | 2019-02-11 15:35 | NUR ---
Ambulated to bathroom patient assisted to ambulate to bathroom, minimal assistance required, patient voided x1, assisted patient to ambulate back to bed, patient resting in bed.
--- NOTE | 2019-02-11 17:07 | NUR ---
RN Rounds patient resting in bed, patient reports pain is controlled, no acute distress noted, IV infusing well, no redness or swelling noted at IV site.
--- NOTE | 2019-02-11 19:20 | NUR ---
Closing Note bedside SBAR report given to receiving RN, patient resting in bed, patient reports pain is controlled at this time, no acute distress noted, educated patient on use of call light and asked to call for assistance, patient verbalized understanding, call light in reach, bed in low and locked position, care endorsed to drug safety assistant RN.
--- NOTE | 2019-02-11 20:00 | NUR ---
Initial note: Received report from thomas RN. Patient is laying in bed watching TV. No distress noted. IV site to left AC is patent and benign. No complaints of pain at this time. Provided patient with fresh pitcher of ice water. Call light is with patient. Will continue to monitor.
--- NOTE | 2019-02-11 21:04 | NUR ---
Blood sugar: Patient's blood sugar at this time is 205. Administered 4 units regular insulin subcutaneously per sliding scale. Provided patient with sugarless Jello per request. Call light is with patient. Will continue to monitor.
[2019-02-12 00:35] VITALS: BP_SYST 119
[2019-02-12] MEDS: ACETAMINOPHEN 325 MG TABLET PO PRN (00:42)
--- NOTE | 2019-02-12 00:43 | NUR ---
Pain: Patient complained of mild left heel pain, requested Tylenol. Administered Tylenol as ordered. Provided education regarding indications and side effects, understanding verbalized. Call light is with patient. Will continue monitoring.
[2019-02-12 02:40] VITALS: BP_SYST 126
--- NOTE | 2019-02-12 03:29 | NUR ---
Rounds: Patient is resting in bed. Does not show acute distress. Even and unlabored breathing on room air. Call light with patient. Safety and fall precautions in place. Will continue monitoring.
[2019-02-12] MEDS: AMPICILLIN SODIUM/SULBACTAM NA 3 GM in NS 100 ML IV SCH ×3 (05:07→18:16)
--- NOTE | 2019-02-12 06:09 | NUR ---
Closing note: Patient is resting in bed, no distress. Breathing is even and unlabored on room air. IV site to left AC is patent and benign. Blood sugar this AM is 129, no insulin administered per sliding scale. Provided patient with sugarless Jello per request. All needs met. Will endorse to thomas MARTIN.
[2019-02-12 06:34] LABS: ALANINE AMINOTRANSFERASE 18 U/L (12-78); ALBUMIN 3.1 g/dL (3.4-4.8); ANION GAP 10 (5-15); ASPARTATE AMINOTRANSFERASE 13 U/L (10-37); CALCIUM 9.6 mg/dL (8.4-11.0); CHLORIDE 103 mmol/L (98-107); CREATININE 0.88 mg/dL (0.55-1.30); GLUCOSE 131 mg/dL (70-99); POTASSIUM 3.9 mmol/L (3.5-5.1); SODIUM SERUM 135 mmol/L (136-145); TOTAL BILIRUBIN 0.3 mg/dL (0.0-1.0); UREA NITROGEN, BLOOD 20 mg/dL (8-21)
[2019-02-12 06:47] LABS: BASOPHILS % (AUTO) 0.4 % (0.0-2.0); EOSINOPHILS # (AUTO) 0.3 K/uL (0.0-0.4); EOSINOPHILS % (AUTO) 3.8 % (0.0-4.0); HEMATOCRIT 33.9 % (36-48); HEMOGLOBIN 11.4 g/dL (12.0-16.0); LYMPHOCYTES # (AUTO) 2.5 K/uL (1.0-5.5); LYMPHOCYTES % (AUTO) 32.6 % (20.5-51.5); MEAN CORPUSCULAR HEMOGLOBIN 29 pg (27-31); MEAN CORPUSCULAR HGB CONC 34 % (32-36); MEAN CORPUSCULAR VOLUME 87 fL (79.0-98.0); MONOCYTES # (AUTO) 0.7 K/uL (0.0-1.0); MONOCYTES % (AUTO) 8.8 % (1.7-9.3); NEUTROPHILS # (AUTO) 4.2 K/uL (1.8-7.7); NEUTROPHILS % (AUTO) 54.4 % (40.0-70.0); PLATELET COUNT (AUTO) 289 K/uL (130-430); RED CELL DISTRIBUTION WIDTH 13.9 % (9.0-15.0); WHITE BLOOD COUNT (AUTO) 7.7 K/uL (4.8-10.8)
--- NOTE | 2019-02-12 07:30 | NUR ---
Opening Note received beside SBAR report from shift superintendent RN, patient resting in bed, no acute distress noted, patient reports pain is controlled, educated patient on use of call light and asked to call for assistance, patient verbalized understanding, call light in reach, bed in low and locked position, bed alarm on.
[2019-02-12 08:00] VITALS: BP_SYST 130
[2019-02-12] MEDS: CARVEDILOL 12.5 MG TABLET (COREG) PO SCH ×2 (09:37→21:57)
[2019-02-12] MEDS: ASPIRIN 81 MG TAB.CHEW PO SCH (09:37)
[2019-02-12] MEDS: SIMVASTATIN 10 MG TABLET PO SCH (09:37)
[2019-02-12] MEDS: ENOXAPARIN SODIUM 40 MG/0.4 ML SYRINGE SUBCUT SCH (09:38)
--- NOTE | 2019-02-12 09:39 | NUR ---
Physician Rounds Dr. Garner at bedside examining patient.
--- NOTE | 2019-02-12 10:10 | NUR ---
ID consult called: for Dr. Almendarez, regarding abscess of foot, ordered by Dr. Garner, spoke with Zhane.
--- NOTE | 2019-02-12 11:55 | NUR ---
RN Rounds patient resting in bed, patient reports pain is controlled, no acute distress noted, no additional needs at this time.
[2019-02-12 12:41] VITALS: BP_SYST 128
--- NOTE | 2019-02-12 13:40 | NUR ---
Spoke with Physician spoke with Dr. Garner, informed him that per radiology they cannot do an MRI due to patient having a pacemaker, no new orders.
--- NOTE | 2019-02-12 14:31 | NUR ---
Ambulated to Bathroom assisted patient to ambulate to bathroom, minimal assistance required, patient voided x1, assisted patient to ambulate back to bed, patient resting in bed.
[2019-02-12 16:34] VITALS: BP_SYST 125
--- NOTE | 2019-02-12 16:45 | NUR ---
Ambulated to bathroom assisted patient to ambulate to bathroom, minimal assistance required, voided x1, assisted patient to ambulate to bed, patient resting in bed.
--- NOTE | 2019-02-12 19:37 | NUR ---
Closing Note bedside SBAR report given to receiving RN, patient resting in bed, patient reports pain is controlled, no acute distress noted, educated patient on use of call light and asked to call for assistance, patient verbalized understanding, call light in reach, bed in low and locked position, bed alarm on, care endorsed to shift coordinator RN.
[2019-02-12 19:50] VITALS: BP_SYST 124
--- NOTE | 2019-02-12 19:50 | NUR ---
Opening notes Pt AAOx4, VSS, afebrile. No c/o pain or discomfort. L. heel cellulitis no open wound noted. R. arm limb alert band on. L. chest pacemaker. Call light/items within reach. Bed low, locked, siderailsx2 elevated. To monitor.
[2019-02-12] MEDS: INSULIN REGULAR, HUMAN 100 UNITS/ML, 10 ML VIAL (humuLIN R) SUBCUT PRN (22:08)
--- NOTE | 2019-02-12 22:36 | NUR ---
IV Restart IV L. AC not patent. DC'd IV catheter tip intact. No bleeding. Restarted new IV L. AC 22G aseptic technique. Good blood return and flushes well with NS. Pt tolerated well. To monitor.
[2019-02-13] MEDS: AMPICILLIN SODIUM/SULBACTAM NA 3 GM in NS 100 ML IV SCH ×4 (00:04→17:54)
--- NOTE | 2019-02-13 00:05 | NUR ---
Rounds/IV antibiotic Pt alert, awake, no s/s distress noted. VSS. IV abx administered as ordered L. FA 22G no s/s infiltration. Call light within reach. Safety measures in place. To monitor.
[2019-02-13 01:29] VITALS: BP_SYST 124
--- NOTE | 2019-02-13 04:10 | NUR ---
Rounds Pt asleep, no s/s distress noted. Call light within reach. Safety measures on. To monitor.
--- NOTE | 2019-02-13 06:45 | NUR ---
Closing notes Pt asleep, easily arousable. No s/s distress noted. Blood sugar checked 126. Pt ambulated to the bathroom and voided. IV antibiotic administered as ordered L. FA 22G, clear and patent. Call light within reach. Safety measures in place. To endorse to AM nurse.
[2019-02-13] MEDS: ASPIRIN 81 MG TAB.CHEW PO SCH (11:06)
[2019-02-13] MEDS: ENOXAPARIN SODIUM 40 MG/0.4 ML SYRINGE SUBCUT SCH (11:06)
[2019-02-13] MEDS: CARVEDILOL 12.5 MG TABLET (COREG) PO SCH ×2 (11:07→20:38)
[2019-02-13] MEDS: SIMVASTATIN 10 MG TABLET PO SCH (11:08)
[2019-02-13 12:53] VITALS: BP_SYST 133
[2019-02-13 16:23] VITALS: BP_SYST 130
--- NOTE | 2019-02-13 19:30 | NUR ---
PM ASSESSMENT REPORT RECEIVED FROM AM RN. PT RECEIVED IN BED WITH EYES OPEN, AAOX4, AND ABLE TO VERBALIZE NEEDS. VSS, NO S/S OF ACUTE DISTRESS NOTED. PT ON RA, BREATHING IS EVEN AND UNLABORED. RFA 22G TO SL, PATENT AND INTACT. R HEEL NOTED WITH NO REDNESS OR INFLAMMATION PT DENIES ANY PAIN OR DISCOMFORT TO THE AREA. NO OTHER NEEDS VERBALIZED PER PT AT THIS TIME. HOB ELEVATED, BED IN LOWEST POSITION, CALL LIGHT IN REACH. WILL CONTINUE TO MONITOR PT.
[2019-02-13 20:00] VITALS: BP_SYST 142
[2019-02-13] MEDS: INSULIN REGULAR, HUMAN 100 UNITS/ML, 10 ML VIAL (humuLIN R) SUBCUT PRN (20:44)
--- NOTE | 2019-02-13 23:45 | NUR ---
REPORT GIVEN TO ALLYN MARTIN TO ASSUME CARE.
--- NOTE | 2019-02-13 23:45 | NUR ---
OPENING NOTE RECEIVED ENDORSEMENT REPORT FROM NURSE DUNN AT BEDSIDE. PT IS AOX3. NO SOB NOTED. NO DISTRESS NOTED. CHEST RISE EVEN AND UNLABORED. NO S/S OF PAIN NOTED. PT DENIES PAIN. IV CLEAN, DRY, PATENT AND INTACT. ORIENTED PT TO HOSPITAL ROOM AND HOW TO USE ROOM PHONE AND CALL LIGHT TO CALL FOR ASSISTANCE. PT VERBALIZED UNDERSTANDING. SAFETY MEASURES IN PLACE. CALL LIGHT/ROOM PHONE WITHIN REACH, BED ALARM ON, BED WHEELS LOCKED, BED IN LOWEST POSITION, BED WHEELS LOCKED, SIDE RAILS UP X3, BEDSIDE TABLE WITHIN REACH. NO OTHER NEEDS AT THIS TIME. WILL CONTINUE TO MONITOR PT AND CONTINUE PT'S POC.
--- NOTE | 2019-02-14 01:20 | NUR ---
RN ROUNDS PT RESTING IN BED WITHE EYES CLOSED. NO SOB NOTED. NO DISTRESS NOTED. CHEST RISE EVEN AND UNLABORED. NO S/S OF PAIN NOTED. NO NEEDS AT THIS TIME. SAFETY MEASURES IN PLACE. WILL CONTINUE TO MONITOR PT AND CONTINUE PT'S POC.
[2019-02-14] MEDS: AMPICILLIN SODIUM/SULBACTAM NA 3 GM in NS 100 ML IV SCH ×4 (02:50→17:59)
--- NOTE | 2019-02-14 03:15 | NUR ---
RN ROUNDS PT RESTING IN BED. NO SOB NOTED. NO DISTRESS NOTED. CHEST RISE EVEN AND UNLABORED. NO S/S OF PAIN NOTED. NO NEEDS AT THIS TIME. SAFETY MEASURES IN PLACE. WILL CONTINUE TO MONITOR PT AND CONTINUE PT'S POC.
[2019-02-14 05:03] VITALS: BP_SYST 135
[2019-02-14 07:57] VITALS: BP_SYST 135
--- NOTE | 2019-02-14 08:00 | NUR ---
Rounds Patient sleep well denies any pain in the left heel, with discomfort only when walking, swelling is barely skin intact encouraged patient to elevate when in bed or sitting.
[2019-02-14] MEDS: SIMVASTATIN 10 MG TABLET PO SCH (08:16)
[2019-02-14] MEDS: ASPIRIN 81 MG TAB.CHEW PO SCH (08:16)
[2019-02-14] MEDS: CARVEDILOL 12.5 MG TABLET (COREG) PO SCH (08:16)
[2019-02-14] MEDS: ENOXAPARIN SODIUM 40 MG/0.4 ML SYRINGE SUBCUT SCH (08:17)
[2019-02-14] MEDS: INSULIN REGULAR, HUMAN 100 UNITS/ML, 10 ML VIAL (humuLIN R) SUBCUT PRN (12:06)
[2019-02-14 14:50] VITALS: BP_SYST 111
--- NOTE | 2019-02-14 15:04 | NUR ---
MD GUERO HERRERA CALLED AT SPOKE WITH ANNIE.
--- NOTE | 2019-02-14 15:11 | NUR ---
DC PLANNING: CM SPOKE WITH PATIENT AT BEDSIDE REGARDING DC PLAN TO SNF. [employer] INSUR[employer] CM ( DOMINICK) @ HAD TWO ACCEPTING FACILITY [facility] AND [facility] [place]. PATIENT CHOOSE [facility]. DOMINICK ([employer] CM) HAD ARRANGED FOR TRANSPORTATION WITH [facility] @ AND IMAGING MANAGER TIME IS AT 5PM. TRANSPORTATION AUTHORIZATION IS [id number]. [facility] ROOM NUMBER IS [id number]. ADDRESS IS [address] [place] [address]. NUMBER FOR NURSE TO NURSE REPORT IS .
--- NOTE | 2019-02-14 15:30 | NUR ---
Follow up CT SCAN per Gautam Duncan spoke to DR. Good ct scan is cancelled to do CT if left heel will not heal after antibiotic.
[2019-02-14 16:20] VITALS: BP_SYST 124
--- NOTE | 2019-02-14 16:45 | NUR ---
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 IVPB Q 24 hours x 10 days.tile picker time 1700 hours.
[2019-02-14 17:30] VITALS: BP_SYST 148
--- NOTE | 2019-02-14 18:58 | NUR ---
Discharged to SNF With new saline lock to left forearm . 22 , patent , dinner served, denies any pain.
== END 2019-02-14 18:58 | DRG 603 ==
LOC: SED 19:15 → SMU 23:12
PROVIDERS: ADMIT Internal Medicine; ATTEND Internal Medicine
DX: L03.116 Cellulitis of left lower limb (principal); E87.1 Hypo-osmolality and hyponatremia; E78.5 Hyperlipidemia, unspecified; E11.65 Type 2 diabetes mellitus with hyperglycemia; I10 Essential (primary) hypertension; L84 Corns and callosities; K21.9 Gastro-esophageal reflux disease without esophagitis; G40.909 Epilepsy, unspecified, not intractable, without status epilepticus; Z80.49 Family history of malignant neoplasm of other genital organs; Z83.3 Family history of diabetes mellitus; Z85.3 Personal history of malignant neoplasm of breast; Z90.10 Acquired absence of unspecified breast and nipple; Z95.0 Presence of cardiac pacemaker; Z88.2 Allergy status to sulfonamides; Z79.4 Long term (current) use of insulin
CPT/HCPCS: 36415; 80053; 81003; 82962; 85025; 87040-TC; 87081; 94760; 96365; 96366; 96367; 99285; J0295; J1650; J1815; J2543; J3370